=== PATIENT | male | born 1980 | race African-American/Black ===

== ENCOUNTER 2016-10-16 08:18 | Emergency (ER) | payer OTHER ==
[~2016-10-16] VITALS: Ht 180.3 cm; Wt 85.9 kg
[~2016-10-16 08:18] MED LIST: PREDNISONE10 M1 PO
[2016-10-16 10:25] LABS: EOSINOPHIL (%) 2.4 % (0-5); EOSINOPHIL COUNT 0.1 K/uL (0-0.3); HEMATOCRIT 44.3 % (38.0-50.0); IMMATURE GRANULOCYTE (%) 0.2 % (0.0-0.7); INSTRUMENT ABS NEUTROPHIL CT 2.8 K/uL; LYMPHOCYTE COUNT 0.9 K/uL (1.0-2.8); MCH 24.3 PG (29.0-34.0); MCHC 30.9 G/DL (30.0-36.0); MCV 78.7 FL (86-99); MEAN PLAT.VOLUME 10.8 uM^3 (9.0-12.4); MONOCYTE (%) 7.7 % (3-12); MONOCYTE COUNT 0.3 K/uL (0-0.8); NEUTROPHIL (%) 67.9 % (45-76); NEUTROPHIL COUNT 2.8 K/uL (1.8-6.4); PLATELET COUNT 110 K/uL (156-360); RBC DIS.WIDTH-CV 15.9 % (11.8-14.6); RBC DIS.WIDTH-SD 44.5 % (39-53); RED BLOOD COUNT 5.63 M/uL (4.00-5.50); WHITE BLOOD COUNT 4.2 K/uL (4.1-10.2)
[2016-10-16 10:36] LABS: CHLORIDE 103 mEq/L (99-109); POTASSIUM 4.1 mEq/L (3.7-5.4); SODIUM 137 mEq/L (136-147)
[2016-10-16 10:39] LABS: GLUCOSE 106 mg/dL (70-99)
[2016-10-16 10:40] LABS: ANION GAP 10 MEQ/L (2-14); TOTAL BILIRUBIN 0.8 mg/dL (0.0-1.0)
[2016-10-16 10:42] LABS: SERUM ETHYL ALCOHOL < 10 mg/dL
[2016-10-16 10:43] LABS: ALKALINE PHOSPHATASE 80 IU/L (3-129); GFR ESTIMATE (CALCULATED) > 59 mL/min/
[2016-10-16 10:44] LABS: DIRECT BILIRUBIN 0.3 mg/dL (0.0-0.3)
[2016-10-16 10:45] LABS: UREA NITROGEN (BUN) 6 mg/dL (9-23)
[2016-10-16 10:46] LABS: SALICYLATE < 5.0 MG/DL (15-30)
[2016-10-16 11:00] LABS: ADD MIUA? YES; BILIRUBIN NEGATIVE; BLOOD SMALL; COLOR STRAW ((YELLOW)); GLUCOSE (STRIP) NEGATIVE; KETONES NEGATIVE; LEUKOCYTES NEGATIVE; NITRITE NEGATIVE; PROTEIN (STRIP) NEGATIVE; SPECIFIC GRAVITY 1.002 (1.000-1.030); UROBILINOGEN 0.2 MG/DL (0.2-1.0)
[2016-10-16 11:10] LABS: AMPHETAMINE NEGATIVE (500 ng/mL); BARBITURATES NEGATIVE (200 ng/mL); BENZODIAZEPINES NEGATIVE (150 ng/mL); COCAINE NEGATIVE (150 ng/mL); INTERNAL CONTROLS VALID? YES; METHADONE NEGATIVE (200 ng/mL); METHAMPHETAMINE NEGATIVE (500 ng/mL); OPIATES (MORPHINE) NEGATIVE (100 ng/mL); OXYCODONE NEGATIVE (100 ng/mL); PHENCYCLIDINE NEGATIVE (25 ng/mL); PROPOXYPHENE NEGATIVE (300 ng/mL); THC CANNABINOIDS NEGATIVE (50 ng/mL); TRICYCLIC ANTIDEPRESSANTS NEGATIVE (300 ng/mL)
[2016-10-16 11:12] LABS: BACTERIA RARE /HPF; EPITHELIAL CELLS NONE SEEN /HPF; MUCUS NONE SEEN /LPF; RED BLOOD CELLS 0-5 /HPF (0-5); WHITE BLOOD CELLS 0-5 /HPF (0-5)
[2016-10-16] MEDS ORDERED: ZOLOFT50 MG PO (12:02)
[2016-10-16] MEDS ORDERED: SEROQUEL50 MG PO (12:02)
[2016-10-16 12:48] VITALS: BP 159/98
== END 2016-10-16 12:49 | disposition home or self-care (01) ==
LOC: EME 08:18
PROVIDERS: Emergency Medicine
DX: F25.9 Schizoaffective disorder, unspecified (principal); F19.10 Other psychoactive substance abuse, uncomplicated; F17.200 Nicotine dependence, unspecified, uncomplicated; Z21 Asymptomatic human immunodeficiency virus [HIV] infection status
CPT/HCPCS: 80048; 80076; 81003; 85025; 90839; 99281; 99285; G0480

== ENCOUNTER 2016-10-20 00:46 | Inpatient (IN) | payer OTHER ==
[~2016-10-20] VITALS: Ht 180.3 cm; Wt 80.8 kg
[~2016-10-20 00:46] MED LIST changes: +SEROQUEL50 MG PO; +ZOLOFT50 MG PO
[2016-10-20 01:07] LABS: HEMATOCRIT 45.8 % (38.0-50.0); MCH 24.4 PG (29.0-34.0); MCV 78.7 FL (86-99); MEAN PLAT.VOLUME 10.1 uM^3 (9.0-12.4); PLATELET COUNT 99 K/uL (156-360); RBC DIS.WIDTH-CV 16.4 % (11.8-14.6); RBC DIS.WIDTH-SD 45.5 % (39-53); RED BLOOD COUNT 5.82 M/uL (4.00-5.50); WHITE BLOOD COUNT 4.8 K/uL (4.1-10.2)
[2016-10-20 01:19] LABS: CHLORIDE 101 mEq/L (99-109); POTASSIUM 3.8 mEq/L (3.7-5.4); SODIUM 135 mEq/L (136-147)
[2016-10-20 01:21] LABS: AMPHETAMINE NEGATIVE (500 ng/mL); BARBITURATES NEGATIVE (200 ng/mL); BENZODIAZEPINES NEGATIVE (150 ng/mL); COCAINE NEGATIVE (150 ng/mL); INTERNAL CONTROLS VALID? YES; METHADONE NEGATIVE (200 ng/mL); METHAMPHETAMINE NEGATIVE (500 ng/mL); OPIATES (MORPHINE) NEGATIVE (100 ng/mL); OXYCODONE NEGATIVE (100 ng/mL); PHENCYCLIDINE NEGATIVE (25 ng/mL); PROPOXYPHENE NEGATIVE (300 ng/mL); THC CANNABINOIDS NEGATIVE (50 ng/mL); TRICYCLIC ANTIDEPRESSANTS NEGATIVE (300 ng/mL)
[2016-10-20 01:21] LABS: GLUCOSE 93 mg/dL (70-99)
[2016-10-20 01:22] LABS: ANION GAP 9 MEQ/L (2-14)
[2016-10-20 01:24] LABS: SERUM ETHYL ALCOHOL 58 mg/dL
[2016-10-20 01:25] LABS: GFR ESTIMATE (CALCULATED) > 59 mL/min/
[2016-10-20 01:26] LABS: UREA NITROGEN (BUN) 9 mg/dL (9-23)
[2016-10-20] MEDS ORDERED: ZOLOFT50 MG PO (10:41)
[2016-10-20] MEDS ORDERED: SEROQUEL50 MG PO (10:41)
[2016-10-20] MEDS ORDERED: STRIBILD TABLE1 EACH PO (10:42)
[2016-10-20 16:02] VITALS: BP 136/90
[2016-10-21 07:53] VITALS: BP 133/91
[2016-10-21 11:54] VITALS: BP 139/71
[2016-10-21 15:59] VITALS: BP 113/67
[2016-10-22 08:03] VITALS: BP 97/55
[2016-10-22 15:37] VITALS: BP 112/79
[2016-10-23 07:50] VITALS: BP 130/58
[2016-10-24 07:28] VITALS: BP 114/65
[2016-10-24] MEDS ORDERED: ZOLOFT50 MG PO (10:58)
[2016-10-24] MEDS ORDERED: SEROQUEL50 MG PO (10:58)
[2016-10-24] MEDS ORDERED: OLANZAPINE10 MG PO (10:58)
== END 2016-10-24 13:38 | disposition home or self-care (01) | DRG 885 ==
LOC: EME 00:46 → EDOF 13:31 → 1WEST 13:31
DX: F25.9 Schizoaffective disorder, unspecified (principal); F11.10 Opioid abuse, uncomplicated; F15.20 Other stimulant dependence, uncomplicated; Z21 Asymptomatic human immunodeficiency virus [HIV] infection status; F41.9 Anxiety disorder, unspecified; F17.210 Nicotine dependence, cigarettes, uncomplicated; G47.10 Hypersomnia, unspecified; Z88.2 Allergy status to sulfonamides; Z88.1 Allergy status to other antibiotic agents; Z91.030 Bee allergy status
CPT/HCPCS: 80048; 85027; 90839; 97150 GO; 97165 GO; 99281; 99285; G0480

== ENCOUNTER 2017-03-06 06:43 | Emergency (ER) | payer OTHER ==
[~2017-03-06] VITALS: Ht 180.3 cm; Wt 88.8 kg
[~2017-03-06 06:43] MED LIST changes: +OLANZAPINE10 MG PO; +STRIBILD TABLE1 EACH PO
[2017-03-06] MEDS ORDERED: DESYREL100 MG PO (07:31)
[2017-03-06 07:50] VITALS: BP 139/90
== END 2017-03-06 07:52 | disposition home or self-care (01) ==
LOC: EME 06:43
DX: F15.10 Other stimulant abuse, uncomplicated (principal); F25.9 Schizoaffective disorder, unspecified; Z91.14 Patient's other noncompliance with medication regimen; F41.9 Anxiety disorder, unspecified; Z21 Asymptomatic human immunodeficiency virus [HIV] infection status; J45.909 Unspecified asthma, uncomplicated; F17.200 Nicotine dependence, unspecified, uncomplicated
CPT/HCPCS: 99281; 99283

== ENCOUNTER 2017-05-13 22:51 | Emergency (ER) | payer OTHER ==
[~2017-05-13] VITALS: Ht 180.3 cm; Wt 91.6 kg
[~2017-05-13 22:51] MED LIST changes: +DESYREL100 MG PO
[2017-05-13 23:58] LABS: EOSINOPHIL (%) 3.4 % (0-5); EOSINOPHIL COUNT 0.2 K/uL (0-0.3); HEMATOCRIT 42.4 % (38.0-50.0); IMMATURE GRANULOCYTE (%) 0.2 % (0.0-0.7); INSTRUMENT ABS NEUTROPHIL CT 3.5 K/uL; LYMPHOCYTE COUNT 1.8 K/uL (1.0-2.8); MCH 27.1 PG (29.0-34.0); MCHC 32.3 G/DL (30.0-36.0); MCV 83.8 FL (86-99); MEAN PLAT.VOLUME 11.3 uM^3 (9.0-12.4); MONOCYTE (%) 4.3 % (3-12); MONOCYTE COUNT 0.3 K/uL (0-0.8); NEUTROPHIL (%) 60.2 % (45-76); NEUTROPHIL COUNT 3.5 K/uL (1.8-6.4); PLATELET COUNT 121 K/uL (156-360); RBC DIS.WIDTH-CV 13.7 % (11.8-14.6); RBC DIS.WIDTH-SD 42.1 % (39-53); RED BLOOD COUNT 5.06 M/uL (4.00-5.50); WHITE BLOOD COUNT 5.8 K/uL (4.1-10.2)
[2017-05-14 00:10] LABS: CHLORIDE 111 mEq/L (99-109); POTASSIUM 3.6 mEq/L (3.7-5.4); SODIUM 140 mEq/L (136-147)
[2017-05-14 00:12] LABS: GLUCOSE 131 mg/dL (70-99)
[2017-05-14 00:13] LABS: ANION GAP 11 MEQ/L (2-14)
[2017-05-14 00:14] LABS: AMPHETAMINE NEGATIVE (500 ng/mL); BARBITURATES NEGATIVE (200 ng/mL); BENZODIAZEPINES NEGATIVE (150 ng/mL); COCAINE NEGATIVE (150 ng/mL); METHADONE NEGATIVE (200 ng/mL); METHAMPHETAMINE NEGATIVE (500 ng/mL); OPIATES (MORPHINE) NEGATIVE (100 ng/mL); OXYCODONE NEGATIVE (100 ng/mL); PHENCYCLIDINE NEGATIVE (25 ng/mL); PROPOXYPHENE NEGATIVE (300 ng/mL); THC CANNABINOIDS NEGATIVE (50 ng/mL); TRICYCLIC ANTIDEPRESSANTS NEGATIVE (300 ng/mL)
[2017-05-14 00:15] LABS: SERUM ETHYL ALCOHOL < 10 mg/dL
[2017-05-14 00:15] LABS: INTERNAL CONTROLS VALID? YES
[2017-05-14 00:16] LABS: GFR ESTIMATE (CALCULATED) > 59 mL/min/
[2017-05-14 00:17] LABS: UREA NITROGEN (BUN) 10 mg/dL (9-23)
[2017-05-14] MEDS ORDERED: ZYPREXA10 MG PO (03:04)
[2017-05-14 03:12] VITALS: BP 131/89
== END 2017-05-14 03:12 | disposition home or self-care (01) ==
LOC: EME 22:51
PROVIDERS: Emergency Medicine
DX: F25.9 Schizoaffective disorder, unspecified (principal); T43.596A Underdosing of other antipsychotics and neuroleptics, initial encounter; Z91.14 Patient's other noncompliance with medication regimen; F10.10 Alcohol abuse, uncomplicated; F41.9 Anxiety disorder, unspecified; J45.909 Unspecified asthma, uncomplicated; Z21 Asymptomatic human immunodeficiency virus [HIV] infection status; Z88.2 Allergy status to sulfonamides; F17.200 Nicotine dependence, unspecified, uncomplicated; Y90.0 Blood alcohol level of less than 20 mg/100 ml
CPT/HCPCS: 80048; 85025; 90839; 99281; 99284; G0480

== ENCOUNTER 2017-09-28 20:54 | Emergency (ER) | payer OTHER ==
[~2017-09-28] VITALS: Ht 180.3 cm; Wt 100.7 kg
[~2017-09-28 20:54] MED LIST changes: +ZYPREXA10 MG PO
[2017-09-28 21:39] LABS: HEMATOCRIT 38.8 % (38.0-50.0); HEMOGLOBIN 13.1 G/DL (12.5-16.6); MCH 28.1 PG (29.0-34.0); MCHC 33.8 G/DL (30.0-36.0); MCV 83.1 FL (86-99); PLATELET COUNT 113 K/uL (156-360); RBC DIS.WIDTH-CV 15.1 % (11.8-14.6); RBC DIS.WIDTH-SD 45.9 % (39-53); RED BLOOD COUNT 4.67 M/uL (4.00-5.50); WHITE BLOOD COUNT 5.3 K/uL (4.1-10.2)
[2017-09-28 21:54] LABS: ALBUMIN 4.3 g/dL (3.2-4.8); CHLORIDE 110 mEq/L (99-109); POTASSIUM 3.8 mEq/L (3.7-5.4); SODIUM 141 mEq/L (136-147)
[2017-09-28 21:57] LABS: GLUCOSE 99 mg/dL (70-99); TOTAL PROTEIN 7.7 g/dL (6.4-8.3)
[2017-09-28 21:59] LABS: TOTAL BILIRUBIN 0.1 mg/dL (0.0-1.0)
[2017-09-28 22:00] LABS: CREATININE 1.1 mg/dL (0.6-1.3); GFR ESTIMATE (CALCULATED) > 59 mL/min/ (58.99-99999); SERUM ETHYL ALCOHOL 258 mg/dL
[2017-09-28 22:01] LABS: ALKALINE PHOSPHATASE 64 IU/L (3-129)
[2017-09-28 22:02] LABS: AST (GOT) 23 IU/L (2-34); UREA NITROGEN (BUN) 21 mg/dL (9-23)
[2017-09-28 22:04] LABS: ACETAMINOPHEN (TYLENOL) < 10 mcg/mL (10-30); ALT (GPT) 24 IU/L (3-49); SALICYLATE < 5.0 MG/DL (15-30)
[2017-09-29 04:07] VITALS: BP 114/72
[2017-09-29 04:22] LABS: AMPHETAMINE NEGATIVE (500 ng/mL); BARBITURATES NEGATIVE (200 ng/mL); BENZODIAZEPINES PRESUMPTIVE POSITIVE (150 ng/mL); BUPRENORPHINE NEGATIVE (10 ng/mL); COCAINE PRESUMPTIVE POSITIVE (150 ng/mL); METHADONE NEGATIVE (200 ng/mL); METHAMPHETAMINE NEGATIVE (500 ng/mL); OPIATES (MORPHINE) NEGATIVE (100 ng/mL); OXYCODONE NEGATIVE (100 ng/mL); PHENCYCLIDINE NEGATIVE (25 ng/mL); PROPOXYPHENE NEGATIVE (300 ng/mL); THC CANNABINOIDS NEGATIVE (50 ng/mL); TRICYCLIC ANTIDEPRESSANTS NEGATIVE (300 ng/mL)
[2017-09-29 05:02] LABS: BENZODIAZEPINES, URINE SCREEN Negative (200 ng/mL)
== END 2017-09-29 04:08 | disposition home or self-care (01) ==
LOC: EME 20:54
PROVIDERS: Emergency Medicine
DX: F10.121 Alcohol abuse with intoxication delirium (principal); Y90.8 Blood alcohol level of 240 mg/100 ml or more; F19.10 Other psychoactive substance abuse, uncomplicated; Z21 Asymptomatic human immunodeficiency virus [HIV] infection status; F25.9 Schizoaffective disorder, unspecified; Z88.8 Allergy status to other drugs, medicaments and biological substances
CPT/HCPCS: 80053; 84999; 85027; 99281; 99285; G0480; J2060; J7030

== ENCOUNTER 2017-10-31 05:02 | Observation (INO) | payer OTHER ==
[~2017-10-31] VITALS: Ht 182.9 cm; Wt 99.8 kg
[2017-10-31 05:53] LABS: HEMATOCRIT 37.4 % (38.0-50.0); HEMOGLOBIN 12.6 G/DL (12.5-16.6); MCH 28.1 PG (29.0-34.0); MCHC 33.7 G/DL (30.0-36.0); MCV 83.3 FL (86-99); PLATELET COUNT 104 K/uL (156-360); RBC DIS.WIDTH-CV 14.8 % (11.8-14.6); RBC DIS.WIDTH-SD 44.9 % (39-53); RED BLOOD COUNT 4.49 M/uL (4.00-5.50)
[2017-10-31 06:01] LABS: ALBUMIN 4.2 g/dL (3.2-4.8)
[2017-10-31 06:02] LABS: CHLORIDE 103 mEq/L (99-109); POTASSIUM 3.3 mEq/L (3.7-5.4); SODIUM 137 mEq/L (136-147)
[2017-10-31 06:04] LABS: GLUCOSE 145 mg/dL (70-99); TOTAL PROTEIN 7.6 g/dL (6.4-8.3)
[2017-10-31 06:06] LABS: TOTAL BILIRUBIN 0.3 mg/dL (0.0-1.0)
[2017-10-31 06:07] LABS: ALKALINE PHOSPHATASE 75 IU/L (3-129)
[2017-10-31 06:08] LABS: CREATININE 1.1 mg/dL (0.6-1.3); GFR ESTIMATE (CALCULATED) > 59 mL/min/ (58.99-99999)
[2017-10-31 06:09] LABS: AST (GOT) 35 IU/L (2-34); UREA NITROGEN (BUN) 18 mg/dL (9-23)
[2017-10-31 06:10] LABS: ALT (GPT) 35 IU/L (3-49)
[2017-10-31 06:11] LABS: CREATINE KINASE 421 IU/L (1-294); LIPASE 55 U/L (1.0-51.0); TOTAL CK 421 IU/L (1-294)
[2017-10-31 06:17] LABS: TROP-I INTERPRETATION NEGATIVE; TROPONIN-I 0.01 ng/mL (0.0-0.30)
[2017-10-31 06:18] LABS: CKMB RELATIVE INDEX 0.5 (0.0-3.9)
[2017-10-31] MEDS ORDERED: ATARAX,VISTARIL25 MG PO (07:01)
[2017-10-31] MEDS ORDERED: ZYPREXA10 MG PO (08:17)
[2017-10-31] MEDS ORDERED: AMBIEN10 MG PO (08:18)
[2017-10-31] MEDS ORDERED: BUSPAR10 MG PO (08:18)
[2017-10-31 11:34] LABS: TROP-I INTERPRETATION NEGATIVE; TROPONIN-I < 0.01 ng/mL (0.0-0.30)
[2017-10-31 15:26] VITALS: BP 157/81
[2017-10-31 18:36] LABS: TROP-I INTERPRETATION NEGATIVE; TROPONIN-I < 0.01 ng/mL (0.0-0.30)
[2017-10-31 20:00] VITALS: BP 138/83
[2017-11-01] VITALS: BP 130/77
[2017-11-01 03:52] VITALS: BP 146/83
[2017-11-01 07:58] VITALS: BP 131/78
[2017-11-01 11:30] VITALS: BP 139/91
[2017-11-01] MEDS ORDERED: CLONAZEPAM0.5 MG PO (13:21)
[2017-11-01 15:05] LABS: ALBUMIN 4.1 G/DL (3.2-4.8); ALKALINE PHOSPHATASE 64 IU/L (3-129); ALT (GPT) 44 IU/L (3-49); AST (GOT) 46 IU/L (2-34); CHLORIDE 107 MEQ/L (99-109); GFR ESTIMATE (CALCULATED) > 59 mL/min/ (58.99-99999); SODIUM 140 MEQ/L (136-147); TOTAL BILIRUBIN 0.4 MG/DL (0.0-1.0); TOTAL PROTEIN 7.7 G/DL (6.4-8.3); UREA NITROGEN (BUN) 11 mg/dL (9-23)
[2017-11-01 15:34] LABS: GLUCOSE 99 mg/dL (70-99); POTASSIUM 4.5 MEQ/L (3.7-5.4)
== END 2017-11-01 16:03 | disposition home or self-care (01) ==
LOC: EME 05:02 → EDOF 08:46 → 4SOUTH 08:46 → ENRESERV 08:49 → 4SOUTH 15:17
PROVIDERS: Emergency Medicine; Nurse Practitioner Adult Health; Student in an Organized Health Care Education/Training Program
DX: F25.9 Schizoaffective disorder, unspecified (principal); Z21 Asymptomatic human immunodeficiency virus [HIV] infection status; R07.89 Other chest pain; F41.9 Anxiety disorder, unspecified; F10.10 Alcohol abuse, uncomplicated; F17.200 Nicotine dependence, unspecified, uncomplicated; F41.0 Panic disorder [episodic paroxysmal anxiety]; G47.00 Insomnia, unspecified; F19.11 Other psychoactive substance abuse, in remission; Z91.030 Bee allergy status; Z88.2 Allergy status to sulfonamides
CPT/HCPCS: 71045; 80053; 82550; 82553; 83690; 84484; 85027; 93005; 99281; 99285; G0378; J1644; J2060; J7030

== ENCOUNTER 2017-11-15 08:54 | Inpatient (IN) | payer OTHER ==
[~2017-11-15] VITALS: Ht 180.3 cm; Wt 98.0 kg
[~2017-11-15 08:54] MED LIST changes: +AMBIEN10 MG PO; +ATARAX,VISTARIL25 MG PO; +BUSPAR10 MG PO; +CLONAZEPAM0.5 MG PO
[2017-11-15 09:57] LABS: BASOPHIL (%) 0.3 % (0-1); EOSINOPHIL (%) 0.2 % (0-5); HEMATOCRIT 44.9 % (38.0-50.0); IMMATURE GRANULOCYTE (%) 0.3 % (0.0-0.7); LYMPHOCYTE (%) 17.6 % (15-42); LYMPHOCYTE COUNT 1.2 K/uL (1.0-2.8); MCH 28.1 PG (29.0-34.0); MCHC 34.3 G/DL (30.0-36.0); MCV 81.9 FL (86-99); MONOCYTE (%) 3.2 % (3-12); MONOCYTE COUNT 0.2 K/uL (0-0.8); NEUTROPHIL (%) 78.4 % (45-76); NEUTROPHIL COUNT 5.2 K/uL (1.8-6.4); RBC DIS.WIDTH-CV 14.4 % (11.8-14.6); RBC DIS.WIDTH-SD 42.6 % (39-53); WHITE BLOOD COUNT 6.6 K/uL (4.1-10.2)
[2017-11-15 09:58] LABS: HEMOGLOBIN 15.4 G/DL (12.5-16.6); PLATELET COUNT 148 K/uL (156-360); RED BLOOD COUNT 5.48 M/uL (4.00-5.50)
[2017-11-15 10:00] LABS: INTER. NORMALIZED RATIO 1.1
[2017-11-15 10:11] LABS: ALBUMIN 4.4 g/dL (3.2-4.8)
[2017-11-15 10:12] LABS: CHLORIDE 101 mEq/L (99-109); SODIUM 138 mEq/L (136-147)
[2017-11-15 10:14] LABS: GLUCOSE 104 mg/dL (70-99); TOTAL PROTEIN 8.3 g/dL (6.4-8.3)
[2017-11-15 10:16] LABS: TOTAL BILIRUBIN 0.3 mg/dL (0.0-1.0)
[2017-11-15 10:17] LABS: SERUM ETHYL ALCOHOL 193 mg/dL
[2017-11-15 10:18] LABS: ALKALINE PHOSPHATASE 86 IU/L (3-129); GFR ESTIMATE (CALCULATED) > 59 mL/min/ (58.99-99999)
[2017-11-15 10:19] LABS: AST (GOT) 38 IU/L (2-34); UREA NITROGEN (BUN) 16 mg/dL (9-23)
[2017-11-15 10:21] LABS: ALT (GPT) 52 IU/L (3-49); LIPASE 40 U/L (1.0-51.0)
[2017-11-15] MEDS ORDERED: ATARAX,VISTARIL25 MG PO (11:05)
[2017-11-15 13:57] VITALS: BP 135/84
[2017-11-15 16:00] VITALS: BP 154/84
[2017-11-15 16:02] LABS: HEMATOCRIT 40.9 % (38.0-50.0); HEMOGLOBIN 13.8 G/DL (12.5-16.6)
[2017-11-15 18:22] LABS: BENZODIAZEPINES, URINE SCREEN Negative (200 ng/mL)
[2017-11-15 19:16] LABS: STOOL OCCULT BLD 1ST SPECIMEN NEGATIVE
[2017-11-15 19:37] VITALS: BP 138/78
[2017-11-15 23:51] VITALS: BP 134/72
[2017-11-16 00:35] LABS: HEMATOCRIT 39.1 % (38.0-50.0); HEMOGLOBIN 13.3 G/DL (12.5-16.6); MCV 82.8 FL (86-99)
[2017-11-16 04:02] VITALS: BP 133/82
[2017-11-16 06:01] LABS: BASOPHIL (%) 0.4 % (0-1); EOSINOPHIL (%) 1.5 % (0-5); EOSINOPHIL COUNT 0.1 K/uL (0-0.3); HEMATOCRIT 40.4 % (38.0-50.0); HEMOGLOBIN 13.4 G/DL (12.5-16.6); IMMATURE GRANULOCYTE (%) 0.4 % (0.0-0.7); LYMPHOCYTE (%) 27.8 % (15-42); LYMPHOCYTE COUNT 1.3 K/uL (1.0-2.8); MCH 27.5 PG (29.0-34.0); MCHC 33.2 G/DL (30.0-36.0); MCV 82.8 FL (86-99); MONOCYTE (%) 6.5 % (3-12); MONOCYTE COUNT 0.3 K/uL (0-0.8); NEUTROPHIL (%) 63.4 % (45-76); RBC DIS.WIDTH-CV 14.2 % (11.8-14.6); RBC DIS.WIDTH-SD 43.1 % (39-53); RED BLOOD COUNT 4.88 M/uL (4.00-5.50); WHITE BLOOD COUNT 4.8 K/uL (4.1-10.2)
[2017-11-16 06:15] LABS: ALBUMIN 3.5 G/DL (3.2-4.8); ALKALINE PHOSPHATASE 71 IU/L (3-129); ALT (GPT) 33 IU/L (3-49); AST (GOT) 31 IU/L (2-34); CHLORIDE 108 MEQ/L (99-109); GFR ESTIMATE (CALCULATED) > 59 mL/min/ (58.99-99999); GLUCOSE 97 mg/dL (70-99); POTASSIUM 3.5 MEQ/L (3.7-5.4); SODIUM 140 MEQ/L (136-147); TOTAL BILIRUBIN 0.6 MG/DL (0.0-1.0); TOTAL PROTEIN 6.7 G/DL (6.4-8.3); UREA NITROGEN (BUN) 11 mg/dL (9-23)
[2017-11-16 07:05] LABS: PLATELET COUNT 97 K/uL (156-360)
[2017-11-16 07:47] VITALS: BP 116/68
[2017-11-16] MEDS ORDERED: PROTONIX40 MG PO (09:03)
[2017-11-16] MEDS ORDERED: AMBIEN10 MG PO (09:03)
[2017-11-16] MEDS ORDERED: CHLORDIAZEPOXID25 MG PO (09:04)
== END 2017-11-16 09:52 | disposition home or self-care (01) | DRG 378 ==
LOC: EME 08:54 → EDOF 11:37 → 5SOUTH 11:37 → ENRESERV 11:38 → 5SOUTH 13:38
PROVIDERS: Emergency Medicine; Physician Assistant
DX: K92.0 Hematemesis (principal); F10.239 Alcohol dependence with withdrawal, unspecified; F17.210 Nicotine dependence, cigarettes, uncomplicated; F25.9 Schizoaffective disorder, unspecified; F43.10 Post-traumatic stress disorder, unspecified; I10 Essential (primary) hypertension; F32.9 Major depressive disorder, single episode, unspecified; Y90.6 Blood alcohol level of 120-199 mg/100 ml; Z79.899 Other long term (current) drug therapy; D69.6 Thrombocytopenia, unspecified; K70.9 Alcoholic liver disease, unspecified; Z21 Asymptomatic human immunodeficiency virus [HIV] infection status; G47.00 Insomnia, unspecified
CPT/HCPCS: 76705; 80053; 80306 90; 82140; 82272; 83690; 83735; 85014; 85018; 85025; 85610; 99281; 99285; C9113; G0480; J2060; J2354; J3411; J3475; J7030; J7050; Q0177

== ENCOUNTER 2018-01-08 19:22 | Emergency (ER) | payer OTHER ==
[~2018-01-08] VITALS: Ht 180.3 cm; Wt 100.9 kg
[~2018-01-08 19:22] MED LIST changes: +CHLORDIAZEPOXID25 MG PO; +PROTONIX40 MG PO
[2018-01-08 20:25] LABS: APPEARANCE CLEAR ((CLEAR)); BILIRUBIN NEGATIVE; BLOOD MODERATE; COLOR YELLOW ((YELLOW)); GLUCOSE (STRIP) NEGATIVE; KETONES NEGATIVE; LEUKOCYTES NEGATIVE; NITRITE NEGATIVE; PROTEIN (STRIP) >=500; SPECIFIC GRAVITY 1.023 (1.000-1.030); UROBILINOGEN 0.2 MG/DL (0.2-1.0)
[2018-01-08 20:30] LABS: HEMATOCRIT 42.4 % (38.0-50.0); HEMOGLOBIN 14.4 G/DL (12.5-16.6); MCH 28.6 PG (29.0-34.0); MCV 84.3 FL (86-99); PLATELET COUNT 151 K/uL (156-360); RBC DIS.WIDTH-CV 15.9 % (11.8-14.6); RBC DIS.WIDTH-SD 48.4 % (39-53); RED BLOOD COUNT 5.03 M/uL (4.00-5.50); WHITE BLOOD COUNT 5.9 K/uL (4.1-10.2)
[2018-01-08 20:39] LABS: ALBUMIN 4.4 g/dL (3.2-4.8); CHLORIDE 106 mEq/L (99-109); POTASSIUM 4.2 mEq/L (3.7-5.4); SODIUM 143 mEq/L (136-147)
[2018-01-08 20:39] LABS: AMPHETAMINE NEGATIVE (500 ng/mL); BARBITURATES NEGATIVE (200 ng/mL); BENZODIAZEPINES NEGATIVE (150 ng/mL); BUPRENORPHINE NEGATIVE (10 ng/mL); COCAINE NEGATIVE (150 ng/mL); METHADONE NEGATIVE (200 ng/mL); METHAMPHETAMINE NEGATIVE (500 ng/mL); OPIATES (MORPHINE) NEGATIVE (100 ng/mL); OXYCODONE NEGATIVE (100 ng/mL); PHENCYCLIDINE NEGATIVE (25 ng/mL); PROPOXYPHENE NEGATIVE (300 ng/mL); THC CANNABINOIDS NEGATIVE (50 ng/mL); TRICYCLIC ANTIDEPRESSANTS NEGATIVE (300 ng/mL)
[2018-01-08 20:40] LABS: BACTERIA NONE SEEN /HPF; EPITHELIAL CELLS NONE SEEN /HPF; MUCUS TRACE /LPF; WHITE BLOOD CELLS 0-5 /HPF (0-5)
[2018-01-08 20:42] LABS: GLUCOSE 100 mg/dL (70-99); TOTAL PROTEIN 8.3 g/dL (6.4-8.3)
[2018-01-08 20:44] LABS: TOTAL BILIRUBIN 0.4 mg/dL (0.0-1.0)
[2018-01-08 20:45] LABS: ALKALINE PHOSPHATASE 79 IU/L (3-129); GFR ESTIMATE (CALCULATED) > 59 mL/min/ (58.99-99999); SERUM ETHYL ALCOHOL 335 mg/dL
[2018-01-08 20:47] LABS: AST (GOT) 32 IU/L (2-34); UREA NITROGEN (BUN) 14 mg/dL (9-23)
[2018-01-08 20:48] LABS: ALT (GPT) 49 IU/L (3-49)
[2018-01-09 07:34] VITALS: BP 146/91
== END 2018-01-09 07:38 | disposition home or self-care (01) ==
LOC: EME 19:22
PROVIDERS: Emergency Medicine
DX: F32.9 Major depressive disorder, single episode, unspecified (principal); F10.129 Alcohol abuse with intoxication, unspecified; F25.9 Schizoaffective disorder, unspecified; Z04.6 Encounter for general psychiatric examination, requested by authority; Y90.8 Blood alcohol level of 240 mg/100 ml or more; F17.200 Nicotine dependence, unspecified, uncomplicated; F41.9 Anxiety disorder, unspecified; I10 Essential (primary) hypertension; J45.909 Unspecified asthma, uncomplicated; Z21 Asymptomatic human immunodeficiency virus [HIV] infection status; Z88.2 Allergy status to sulfonamides
CPT/HCPCS: 80053; 81003; 85027; 90837; 99281; 99285; G0480

== ENCOUNTER 2018-01-21 03:43 | Inpatient (IN) | payer OTHER ==
[~2018-01-21] VITALS: Ht 180.3 cm; Wt 98.2 kg
[2018-01-21 04:52] LABS: HEMATOCRIT 37.4 % (38.0-50.0); HEMOGLOBIN 13.6 G/DL (12.5-16.6); MCH 29.1 PG (29.0-34.0); MCHC 36.4 G/DL (30.0-36.0); RBC DIS.WIDTH-CV 14.5 % (11.8-14.6); RBC DIS.WIDTH-SD 40.8 % (39-53); RED BLOOD COUNT 4.67 M/uL (4.00-5.50); WHITE BLOOD COUNT 5.2 K/uL (4.1-10.2)
[2018-01-21 05:03] LABS: ALBUMIN 4.1 g/dL (3.2-4.8); CHLORIDE 103 mEq/L (99-109); POTASSIUM 3.4 mEq/L (3.7-5.4); SODIUM 134 mEq/L (136-147)
[2018-01-21 05:06] LABS: GLUCOSE 106 mg/dL (70-99); TOTAL PROTEIN 7.9 g/dL (6.4-8.3)
[2018-01-21 05:09] LABS: ALKALINE PHOSPHATASE 120 IU/L (3-129); CREATININE 1.6 mg/dL (0.6-1.3); GFR ESTIMATE (CALCULATED) > 59 mL/min/ (58.99-99999)
[2018-01-21 05:10] LABS: UREA NITROGEN (BUN) 13 mg/dL (9-23)
[2018-01-21 05:11] LABS: AST (GOT) 528 IU/L (2-34); DIRECT BILIRUBIN 0.5 mg/dL (0.0-0.3)
[2018-01-21 05:12] LABS: ALT (GPT) 358 IU/L (3-49); MCV 80.1 FL (86-99)
[2018-01-21 05:13] LABS: LIPASE 74 U/L (1.0-51.0)
[2018-01-21 06:07] LABS: SERUM ETHYL ALCOHOL < 10 mg/dL
[2018-01-21 06:10] LABS: ACETAMINOPHEN (TYLENOL) < 10 mcg/mL (10-30); SALICYLATE 6.8 MG/DL (15-30)
[2018-01-21 06:20] LABS: BASOPHIL (%) 0.4 % (0-1); EOSINOPHIL (%) 1.2 % (0-5); EOSINOPHIL COUNT 0.1 K/uL (0-0.3); IMMATURE GRANULOCYTE (%) 0.2 % (0.0-0.7); LYMPHOCYTE (%) 31.8 % (15-42); LYMPHOCYTE COUNT 1.6 K/uL (1.0-2.8); MONOCYTE (%) 6.6 % (3-12); MONOCYTE COUNT 0.3 K/uL (0-0.8); NEUTROPHIL (%) 59.8 % (45-76); NEUTROPHIL COUNT 3.1 K/uL (1.8-6.4); PLAT.SUFFICIENCY DECREASED
[2018-01-21 06:28] LABS: PLATELET COUNT 60 K/uL (156-360)
[2018-01-21 06:48] LABS: AMPHETAMINE NEGATIVE (500 ng/mL); BARBITURATES NEGATIVE (200 ng/mL); BENZODIAZEPINES PRESUMPTIVE POSITIVE (150 ng/mL); BUPRENORPHINE NEGATIVE (10 ng/mL); COCAINE NEGATIVE (150 ng/mL); METHADONE NEGATIVE (200 ng/mL); METHAMPHETAMINE NEGATIVE (500 ng/mL); OPIATES (MORPHINE) NEGATIVE (100 ng/mL); OXYCODONE NEGATIVE (100 ng/mL); PHENCYCLIDINE NEGATIVE (25 ng/mL); PROPOXYPHENE NEGATIVE (300 ng/mL); THC CANNABINOIDS NEGATIVE (50 ng/mL); TRICYCLIC ANTIDEPRESSANTS NEGATIVE (300 ng/mL)
[2018-01-21 07:27] LABS: BENZODIAZEPINES, URINE SCREEN POSITIVE (200 ng/mL)
[2018-01-21 11:13] VITALS: BP 156/82
[2018-01-21 17:12] VITALS: BP 118/71
[2018-01-22 08:09] VITALS: BP 121/85
[2018-01-22 16:21] VITALS: BP 132/80
[2018-01-23 08:16] VITALS: BP 118/67
[2018-01-23 08:45] LABS: ALBUMIN 4.1 G/DL (3.2-4.8); ALKALINE PHOSPHATASE 80 IU/L (3-129); ALT (GPT) 248 IU/L (3-49); AST (GOT) 206 IU/L (2-34); CHLORIDE 106 MEQ/L (99-109); CREATININE 1.2 MG/DL (0.6-1.3); GFR ESTIMATE (CALCULATED) > 59 mL/min/ (58.99-99999); GLUCOSE 111 mg/dL (70-99); POTASSIUM 3.5 MEQ/L (3.7-5.4); TOTAL BILIRUBIN 0.9 MG/DL (0.0-1.0); TOTAL PROTEIN 7.5 G/DL (6.4-8.3); UREA NITROGEN (BUN) 12 mg/dL (9-23)
[2018-01-23 08:55] LABS: SODIUM 141 MEQ/L (136-147)
[2018-01-23 15:28] VITALS: BP 140/81
[2018-01-24 09:37] VITALS: BP 110/57
[2018-01-24 16:13] VITALS: BP 123/72
[2018-01-25 07:48] VITALS: BP 126/71
[2018-01-25 16:29] VITALS: BP 130/76
[2018-01-26 07:52] VITALS: BP 134/80
[2018-01-26 15:23] VITALS: BP 123/74
[2018-01-27 07:52] VITALS: BP 125/67
[2018-01-27 15:28] VITALS: BP 132/72
[2018-01-28 07:57] VITALS: BP 149/81
[2018-01-28] MEDS ORDERED: OLANZAPINE10 MG PO (11:14)
== END 2018-01-28 14:14 | disposition other institution (70) | DRG 885 ==
LOC: EME → EDBD 03:43 → EME 03:43 → EDOF 09:30 → 1WEST 09:30 → ENRESERV 11:00 → 1WEST 11:00
PROVIDERS: Emergency Medicine; Psychiatry & Neurology Psychiatry
DX: F25.0 Schizoaffective disorder, bipolar type (principal); R45.851 Suicidal ideations; B20 Human immunodeficiency virus [HIV] disease; R21 Rash and other nonspecific skin eruption; F10.10 Alcohol abuse, uncomplicated; F41.9 Anxiety disorder, unspecified; G47.00 Insomnia, unspecified; I10 Essential (primary) hypertension; F17.200 Nicotine dependence, unspecified, uncomplicated; J45.909 Unspecified asthma, uncomplicated; Z91.5 Personal history of self-harm; Z83.3 Family history of diabetes mellitus
CPT/HCPCS: 80048; 80053; 80076; 83690; 84999; 85025; 90839; 97150 GO; 97165 GO; 99281; 99284; G0480; Q0177